=== PATIENT | female | born 1970 | race African-American/Black ===

== ENCOUNTER 2016-10-18 19:02 | Emergency (ER) | payer OTHER ==
[2016-10-18] MEDS ORDERED: ACETAMINOPHEN 325 MG TABLET PO ONE (20:04)
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
[2016-10-18 20:49] VITALS: BP 137/67
== END 2016-10-18 20:30 | disposition home or self-care (01) ==
LOC: ER 19:02
DX: R51 Headache (principal); V89.2XXA Person injured in unspecified motor-vehicle accident, traffic, initial encounter
CPT/HCPCS: 99283